=== PATIENT | female | born 1970 | race Caucasian/White ===

== ENCOUNTER 2017-01-20 09:32 | Day surgery (SDC) | payer MEDICAID ==
[2017-01-08 09:34] VITALS: BP 132/87
[~2017-01-20] VITALS: Ht 149.9 cm; Wt 101.0 kg
[~2017-01-20 09:32] MED LIST: ATOR40TA78 PO; CYAN10005 PO; FLUO20TA25 PO; HYDR25TA6 PO; METF500T4 PO; PANT20TA2 PO
[2017-01-20] MEDS ORDERED: LACTATED RINGERS 1,000 ML IV SCH (09:54)
[2017-01-20 09:55] VITALS: BP 132/87
[2017-01-20 09:55] LABS: HCG UR LOT HCG7030192
[2017-01-20 10:01] LABS: HCG UR OBC PASS
[2017-01-20] MEDS ORDERED: ONDANSETRON 2MG/ML, 2ML ONE (11:11)
[2017-01-20] MEDS ORDERED: ROCURONIUM 10 MG/ML ONE (11:11)
[2017-01-20] MEDS ORDERED: DEXAMETHASONE 4 MG/ML, 1ML ONE (11:11)
[2017-01-20] MEDS ORDERED: SUCCINYLCHOLINE 20 MG/ML, 10ML ONE (11:11)
[2017-01-20] MEDS ORDERED: FENTANYL PF 100 MCG/2ML ONE ×2 (11:11)
[2017-01-20] MEDS ORDERED: HYDROmorphone 1 MG/ML, 1ML ONE (11:11)
[2017-01-20] MEDS ORDERED: MIDAZOLAM 1 MG/ML, 2ML ONE (11:11)
[2017-01-20] MEDS ORDERED: PROPOFOL 10 MG/ML, 20ML ONE (11:11)
[2017-01-20] MEDS ORDERED: LIDOCAINE/PF 1%, 30ML ONE (11:43)
[2017-01-20] MEDS ORDERED: EPINEPHRINE 1 MG/ML, 1ML ONE (11:44)
[2017-01-20] MEDS ORDERED: SILVER NITRATE STICK TP ONE (11:44)
[2017-01-20] MEDS ORDERED: LIDOCAINE GEL 2%, 5ML ONE (11:52)
[2017-01-20] MEDS ORDERED: ONDANSETRON 2MG/ML, 2ML IVPush PRN (12:30)
[2017-01-20] MEDS ORDERED: OXYcodone 5 MG/5 ML ORAL.SOL UDC PO PRN (12:30)
[2017-01-20] MEDS ORDERED: LABETALOL 5MG/ML, 20ML IV PRN (12:30)
[2017-01-20] MEDS ORDERED: FENTANYL PF 100 MCG/2ML IV PRN (12:30)
[2017-01-20] MEDS ORDERED: hydrALAzine 20 MG/ML, 1ML IV PRN (12:30)
[2017-01-20] MEDS ORDERED: HYDROcodone/APAP 7.5-325MG/15ML UDC PO PRN (12:30)
[2017-01-20] MEDS ORDERED: ACETAMINOPHEN 325 MG TABLET PO PRN (12:30)
[2017-01-20] MEDS ORDERED: HYDROmorphone 1 MG/ML, 1ML IV PRN (12:30)
[2017-01-20] MEDS ORDERED: KETOROLAC 30 MG/1 ML ONE (12:56)
[2017-01-20] MEDS ORDERED: LIDOCAINE-MPF 2% ,5ML ONE (13:01)
[2017-01-20] MEDS ORDERED: ACETAMINOPHEN 650 MG/20.3 ML UDC ONE (13:27)
[2017-01-20] MEDS ORDERED: OXYcodone 5 MG/5 ML ORAL.SOL UDC ONE (13:27)
== END 2017-01-20 16:10 ==
LOC: OUT 09:32
PROVIDERS: ATTEND Student in an Organized Health Care Education/Training Program
DX: N93.9 Abnormal uterine and vaginal bleeding, unspecified (principal); N84.0 Polyp of corpus uteri; E66.01 Morbid (severe) obesity due to excess calories; Z68.41 Body mass index [BMI] 40.0-44.9, adult; E78.5 Hyperlipidemia, unspecified; I10 Essential (primary) hypertension; G47.33 Obstructive sleep apnea (adult) (pediatric); Z98.890 Other specified postprocedural states
CPT/HCPCS: 36415; 58300; 58558; 81025; 86850; 86900; 88305; J0171; J0330; J1100; J1170; J1885; J2250; J2405; J2704; J3010; J3490; J7120; J7298

== ENCOUNTER 2017-02-24 05:12 | Inpatient (IN) | payer MEDICAID ==
[2017-02-22 11:23] LABS: HEMATOCRIT 39.7 % (34.6-47.8); HEMOGLOBIN 13.1 g/dL (11.7-16.4); WHITE BLOOD COUNT 8.3 x10^3/uL (3.4-10)
[2017-02-22 11:35] LABS: BLOOD UREA NITROGEN 16 mg/dL (7-18)
[2017-02-22 11:39] LABS: ASPARTATE AMINO TRANSFERASE 15 U/L (15-37)
[~2017-02-24] VITALS: Ht 149.9 cm; Wt 111.2 kg
[~2017-02-24 05:12] MED LIST changes: +PANT40TA5 PO; +VITAMIN B 12 PO
[2017-02-24] MEDS ORDERED: LACTATED RINGERS 1,000 ML IV SCH (06:09)
[2017-02-24 06:13] VITALS: BP 121/82
[2017-02-24 06:20] LABS: HCG UR LOT HCG7030192
[2017-02-24 06:23] LABS: HCG UR OBC PASS
[2017-02-24] MEDS ORDERED: LIDOCAINE 1%, 2ML SQ PRN (06:30)
[2017-02-24] MEDS ORDERED: SCOPOLAMINE 1MG PATCH TD ONE ×2 (06:58→07:30)
[2017-02-24] MEDS ORDERED: LIDOCAINE-MPF 2% ,5ML ONE (07:00)
[2017-02-24] MEDS ORDERED: PROPOFOL 10 MG/ML, 20ML ONE (07:00)
[2017-02-24] MEDS ORDERED: CEFAZOLIN 1,000 MG ONE ×2 (07:00)
[2017-02-24] MEDS ORDERED: ROCURONIUM 10 MG/ML ONE (07:00)
[2017-02-24] MEDS ORDERED: ONDANSETRON 2MG/ML, 2ML ONE (07:04)
[2017-02-24] MEDS ORDERED: DEXAMETHASONE 4 MG/ML, 1ML ONE (07:04)
[2017-02-24] MEDS ORDERED: BUPIVACAINE/PF 0.5% ONE (07:06)
[2017-02-24] MEDS ORDERED: FENTANYL PF 250 MCG/5ML ONE (07:09)
[2017-02-24] MEDS ORDERED: MIDAZOLAM 1 MG/ML, 2ML ONE (07:09)
[2017-02-24] MEDS ORDERED: HYDROmorphone 1 MG/ML, 1ML ONE (07:35)
[2017-02-24] MEDS ORDERED: PROMETHAZINE 25 MG/ML, 1ML IV PRN (08:00)
[2017-02-24] MEDS ORDERED: ALBUTEROL SULFATE 2.5 MG/3 ML NPPB PRN (08:00)
[2017-02-24] MEDS ORDERED: MEPERIDINE/PF 25MG/0.5ML IVPush PRN (08:00)
[2017-02-24] MEDS ORDERED: EPHEDRINE 50 MG/ML, 1ML IVPush PRN (08:00)
[2017-02-24] MEDS ORDERED: METOPROLOL 1 MG/ML, 5ML IV PRN (08:00)
[2017-02-24] MEDS ORDERED: hydrALAzine 20 MG/ML, 1ML IV PRN (08:00)
[2017-02-24] MEDS ORDERED: DIAZEPAM 5 MG/ML, 2ML IVPush PRN (08:00)
[2017-02-24] MEDS ORDERED: HYDROmorphone 1 MG/ML, 1ML IV PRN (08:00)
[2017-02-24] MEDS ORDERED: ONDANSETRON 2MG/ML, 2ML IVPush PRN (08:00)
[2017-02-24] MEDS ORDERED: ACETAMINOPHEN 325 MG TABLET PO PRN (08:00)
[2017-02-24] MEDS ORDERED: OXYcodone 5 MG/5 ML ORAL.SOL UDC PO PRN (08:00)
[2017-02-24] MEDS ORDERED: LABETALOL 5MG/ML, 20ML IV PRN (08:00)
[2017-02-24] MEDS ORDERED: NEOSTIGMINE 1 MG/ML, 10ML ONE (08:58)
[2017-02-24] MEDS ORDERED: GLYCOPYRROLATE 0.4 MG/2 ML, 2ML ONE (08:58)
[2017-02-24] MEDS ORDERED: FLUORESCEIN SODIUM 500 MG/5 ML ONE (09:01)
[2017-02-24] MEDS ORDERED: ACETAMINOPHEN 650 MG/20.3 ML UDC ONE (10:25)
[2017-02-24] MEDS ORDERED: OXYcodone 5 MG/5 ML ORAL.SOL UDC ONE (10:25)
[2017-02-24] MEDS ORDERED: FENTANYL PF 100 MCG/2ML ONE (10:29)
[2017-02-24] MEDS: FENTANYL PF 100 MCG/2ML IV PRN ×2 (10:31→10:36)
[2017-02-24] MEDS ORDERED: HYDROcodone/APAP 7.5-325MG/15ML UDC PO PRN (12:00)
[2017-02-24] MEDS ORDERED: morphine SULFATE 10 MG/ML, 1ML IV PRN (12:00)
[2017-02-24] MEDS ORDERED: ONDANSETRON 2MG/ML, 2ML IV PRN (12:00)
[2017-02-24 13:27] VITALS: BP 113/69
[2017-02-24] MEDS: KETOROLAC 30 MG/1 ML IV SCH ×2 (13:56→20:03)
[2017-02-24] MEDS: HYDROmorphone 2 MG/ML, 1ML IV PRN ×2 (13:56→17:21)
[2017-02-24] MEDS: POTASSIUM CHLORIDE 20 MEQ in D5%-LACTATED RINGERS 1,000 ML IV SCH ×2 (13:57→21:57)
[2017-02-24] MEDS ORDERED: CEFAZOLIN 2,000 MG in DEXTROSE 5% 100 ML IVPB SCH (15:00)
[2017-02-24] MEDS ORDERED: KETOROLAC 30 MG/1 ML ONE (16:24)
[2017-02-24] MEDS: SIMETHICONE 80 MG CHEW TAB PO SCH (17:27)
[2017-02-24 19:29] VITALS: BP 92/69
[2017-02-24] MEDS ORDERED: ZOLPIDEM 5MG TABLET PO PRN (21:00)
[2017-02-24] MEDS: OXYcodone 5 MG/5 ML ORAL.SOL UDC PO PRN (23:09)
[2017-02-25 00:10] VITALS: BP 107/68
[2017-02-25] MEDS: KETOROLAC 30 MG/1 ML IV SCH (01:37)
[2017-02-25] MEDS: SIMETHICONE 80 MG CHEW TAB PO SCH ×4 (01:37→20:42)
[2017-02-25 02:35] VITALS: BP 95/66
[2017-02-25 04:54] LABS: HEMATOCRIT 31.2 % (34.6-47.8); HEMOGLOBIN 10.4 g/dL (11.7-16.4)
[2017-02-25] MEDS: IBUPROFEN 600 MG TABLET PO SCH ×4 (05:35→22:09)
[2017-02-25] MEDS: POTASSIUM CHLORIDE 20 MEQ in D5%-LACTATED RINGERS 1,000 ML IV SCH ×3 (05:40→22:15)
[2017-02-25 06:46] VITALS: BP 102/66
[2017-02-25] MEDS: OXYcodone 5 MG/5 ML ORAL.SOL UDC PO PRN ×3 (08:50→18:01)
[2017-02-25 13:49] VITALS: BP 101/65
[2017-02-25] MEDS: ESTRADIOL 1 MG TABLET PO SCH (15:01)
[2017-02-25 19:28] VITALS: BP 101/62
[2017-02-26 00:51] VITALS: BP 92/60
[2017-02-26] MEDS: POTASSIUM CHLORIDE 20 MEQ in D5%-LACTATED RINGERS 1,000 ML IV SCH (06:02)
[2017-02-26] MEDS: IBUPROFEN 600 MG TABLET PO SCH ×2 (06:14→12:16)
[2017-02-26 07:46] VITALS: BP 81/52
[2017-02-26] MEDS: SIMETHICONE 80 MG CHEW TAB PO SCH (08:20)
[2017-02-26] MEDS: ESTRADIOL 1 MG TABLET PO SCH (08:20)
[2017-02-26] MEDS: OXYcodone 5 MG/5 ML ORAL.SOL UDC PO PRN (10:09)
[2017-02-26] MEDS ORDERED: ESTR1TAB15 PO (13:18)
[2017-02-26] MEDS ORDERED: IBUP-1222 PO (13:18)
[2017-02-26] MEDS ORDERED: OXYC5CAP2 PO (13:18)
== END 2017-02-26 13:28 | disposition home or self-care (01) | DRG 743 ==
LOC: OUT 05:12 → EDSTATUS 07:30 → 4NOR 11:24 → OUT 11:27 → 4NOR 11:27 → DCLOUNGE 02-26 13:08 → UNDODISIN 02-26 13:08
PROVIDERS: ADMIT Specialist; ATTEND Specialist
PROC: 0UT20ZZ Resection of Bilateral Ovaries, Open Approach (ICD-10-PCS; 2017-02-24)
PROC: 0UT90ZL Resection of Uterus, Supracervical, Open Approach (ICD-10-PCS; 2017-02-24)
PROC: 0UT70ZZ Resection of Bilateral Fallopian Tubes, Open Approach (ICD-10-PCS; principal; 2017-02-24 07:30)
DX: D25.9 Leiomyoma of uterus, unspecified (principal); F32.81 Premenstrual dysphoric disorder; N73.6 Female pelvic peritoneal adhesions (postinfective); N80.9 Endometriosis, unspecified; N80.1 Endometriosis of ovary
CPT/HCPCS: 36415; 80053; 81025; 85014; 85018; 85025; 86850; 86900; 88307; 93005; J0690; J1100; J1170; J1885; J2250; J2405; J2704; J2710; J3010; J3480; J3490; C1765; J7120; J7121

== ENCOUNTER 2017-03-14 19:38 | Emergency (ER) | payer MEDICAID ==
[~2017-03-14] VITALS: Ht 149.9 cm; Wt 104.8 kg
[~2017-03-14 19:38] MED LIST changes: +ESTR1TAB15 PO; +IBUP-1222 PO; +OXYC5CAP2 PO
[2017-03-14] MEDS ORDERED: SODIUM CHLORIDE 0.9% 1,000ML IVBOLUS ONE (20:30)
[2017-03-14 20:47] LABS: HEMATOCRIT 34.6 % (34.6-47.8); HEMOGLOBIN 11.6 g/dL (11.7-16.4); WHITE BLOOD COUNT 12.2 x10^3/uL (3.4-10)
[2017-03-14 20:54] LABS: ASPARTATE AMINO TRANSFERASE 9 U/L (15-37); BLOOD UREA NITROGEN 16 mg/dL (7-18)
[2017-03-14 22:10] LABS: RAPID INFLUENZA A Negative (Negative); RAPID INFLUENZA B Negative (Negative)
[2017-03-14] MEDS ORDERED: OMNIPAQUE 350 MG/ML, 100ML BOTTLE ONE (23:16)
[2017-03-14 23:19] VITALS: BP 129/74
== END 2017-03-14 23:33 | disposition home or self-care (01) ==
LOC: ED 22:30
DX: K91.873 Postprocedural seroma of a digestive system organ or structure following other procedure (principal); K64.4 Residual hemorrhoidal skin tags; I10 Essential (primary) hypertension; K92.2 Gastrointestinal hemorrhage, unspecified; Z90.710 Acquired absence of both cervix and uterus
CPT/HCPCS: 36415; 74177; 80053; 81003; 83605; 83690; 84145; 85025; 86850; 86900; 87040; 87400; 96360; 99285; J7030; Q9967

== ENCOUNTER 2020-07-20 13:15 | Emergency (ER) | payer MEDICAID ==
[~2020-07-20] VITALS: Ht 149.9 cm; Wt 120.7 kg
[~2020-07-20 13:15] MED LIST changes: +CYAN-27 PO; -CYAN10005 PO; +METF500T17 PO; -METF500T4 PO; -PANT40TA5 PO; +PANT40TA6 PO
--- NOTE | 2020-07-20 13:38 | NUR ---
MD HAMILTON BEDSIDE
[2020-07-20] MEDS ORDERED: KETOROLAC 30 MG/1 ML IVPush ONE (14:00)
[2020-07-20] MEDS ORDERED: KETOROLAC 30 MG/1 ML ONE (14:00)
[2020-07-20] MEDS ORDERED: SODIUM CHLORIDE FLUSH 10ML SYR IVF ONE (14:00)
--- NOTE | 2020-07-20 14:06 | NUR ---
PT MEDICATED PER MAR
[2020-07-20 14:19] LABS: BASOPHILS % (AUTO) 0 % (0-1); EOSINOPHILS % (AUTO) 0 % (1-7); LYMPHOCYTES % (AUTO) 8 % (22-44); MEAN CORPUSCULAR HEMOGLOBIN 29.1 pg (27.0-34.8); MEAN PLATELET VOLUME 7.2 fL (7.4-10.4); MONOCYTES % (AUTO) 6 % (2-9); NEUTROPHILS % (AUTO) 86 % (42-75); PLATELET COUNT 393 x10^3/uL (130-400); RED BLOOD COUNT 4.55 x10^6/uL (3.82-5.3); RED CELL DISTRIBUTION WIDTH 13.8 % (9.6-15.2)
[2020-07-20 14:20] LABS: MD NO
[2020-07-20 14:30] LABS: ALANINE AMINOTRANSFERASE 42 U/L (12-78); ALBUMIN 3.2 g/dL (3.4-5.0); ANION GAP 8 mmol/L (5-15); CALCIUM 9.2 mg/dL (8.5-10.1); CHLORIDE 99 mmol/L (98-107); CREATININE 1.06 mg/dL (0.55-1.02)
[2020-07-20 14:34] LABS: ALKALINE PHOSPHATASE 98 U/L (45-117); BILIRUBIN,TOTAL 0.8 mg/dL (0.2-1.0); TOTAL PROTEIN 7.5 g/dL (6.4-8.2); TROPONIN I < 0.015 ng/mL (0.000-0.045)
[2020-07-20] MEDS ORDERED: POTASSIUM CHLORIDE 20 MEQ PACKET ONE (14:51)
[2020-07-20] MEDS ORDERED: POTASSIUM CHLORIDE 20 MEQ PACKET PO ONE (15:00)
[2020-07-20] MEDS ORDERED: OMNIPAQUE 350 MG/ML, 75ML BOTTLE ONE (15:21)
--- NOTE | 2020-07-20 15:22 | NUR ---
PT BACK FROM CT
--- NOTE | 2020-07-20 16:55 | NUR ---
PT REC'VD DISCHARGE INSTRUCTIONS AND EDUCATION. PT HAD NO FURTHER QUESTIONS. PT AMBULATED TO DC AREA, STEADY GAIT.
[2020-07-20 16:57] VITALS: BP 115/70
== END 2020-07-20 17:04 | disposition home or self-care (01) ==
LOC: ED 16:50
DX: E11.65 Type 2 diabetes mellitus with hyperglycemia (principal); E87.6 Hypokalemia; R06.00 Dyspnea, unspecified; M25.512 Pain in left shoulder; M79.622 Pain in left upper arm; I10 Essential (primary) hypertension; R00.0 Tachycardia, unspecified; R07.89 Other chest pain
CPT/HCPCS: 36415; 71045; 71275; 80053; 83735; 83880; 84484; 85025; 85379; 93005; 96374; 99285; J1885; Q9967

== ENCOUNTER → 2020-09-17 | Outpatient (CLI) | payer MEDICAID ==
[~2020-09-17] MED LIST changes: +LIDOCAINE 1%, 10ML ONE
== END | disposition home or self-care (01) ==
LOC: RAD 09:16
PROVIDERS: ATTEND Internal Medicine
DX: E04.1 Nontoxic single thyroid nodule (principal); Z79.899 Other long term (current) drug therapy; Z72.89 Other problems related to lifestyle
CPT/HCPCS: 10005; 88173; J3490